=== PATIENT | male | born 1955 | race Caucasian/White ===

== ENCOUNTER 2017-10-13 10:25 | Inpatient (IN) | payer OTHER ==
[2017-10-13] VITALS (11 sets, daily range): BP systolic 94–143; BP diastolic 42–84
[~2017-10-13] VITALS: Ht 177.8 cm; Wt 104.8 kg
[~2017-10-13 10:25] MED LIST: ADULT LOW DOSE81 MG PO; ASPIR 8181 M1 PO; AUGMENTIN 875875 MG PO; CENTRUM SILVER1 EAC2 PO; CENTRUM SILVER1 EAC4 PO; CLARITIN10 MG PO; COLACE100 MG PO; ENOXAPARIN30 MG/0.1 SUBQ; FENTANYL PA50 MCG/HR TRANSDERM; FLONASE 0.05%50 MCG NASAL; HUMALOG100 UNIT/1 SUBQ; HYDROCODONE-AP1 EAC6 PO; IBUPROFEN 200200 M1 PO; LANTUS SUBQ; LIDOCAINE 22 %/30 GM MM; LISINOPRIL10 MG PO; LOPRESSOR25 PO; MINOCYCLINE HC100 M2 PO; NEURONTIN 300300 M1 PO; NEURONTIN600 MG PO; OXYCODONE HCL 55 MG PO; UNASYN 3 GM VIAL3 G1 IV; VITAMIN C500 M1 PO; VITAMIN E400 UNIT PO; VITAMINC500 PO
[2017-10-13] MEDS ORDERED: TYLENOL325 MG PO (10:42)
[2017-10-13 11:06] LABS: ANION GAP 18 mmol/L (7-16); BUN 68 mg/dL (7-18); CALCIUM 9.1 mg/dL (8.5-10.1); CHLORIDE 96 mmol/L (98-107); CO2 18 mmol/L (21-32); CREATININE 2.4 mg/dL (0.6-1.3); GLUCOSE 167 mg/dL (70-99); SODIUM 132 mmol/L (136-145)
[2017-10-13 11:07] LABS: APTT 29.3 Seconds (25.0-31.3); HEMATOCRIT 33.4 % (42.0-52.0); HEMOGLOBIN 10.8 gm/dL (14.0-18.0); INR 2.1; MCHC 32.4 g/dL (28.0-37.0); MCV 86.2 fL (80.0-100.0); MPV 6.8 fl. (7.2-11.1); NUCLEATED RBCS 0 /100WBC; PLATELET COUNT* 182 thou/uL (150-400); PROTIME 20.1 Seconds (9.20-11.50); RBC 3.87 mil/uL (4.50-6.00); RDW-CV 27.9 % (10.5-14.5); WBC 16.8 thou/uL (4.0-11.0)
[2017-10-13 11:13] LABS: ALBUMIN 2.1 g/dL (3.4-5.0); ALKALINE PHOSPHATASE 463 U/L (46-116); LIPASE 108 U/L (73-393); SGOT 310 U/L (15-37); SGPT 75 U/L (30-65); TOTAL PROTEIN 7.2 g/dL (6.4-8.2); TROPONIN-I LEVEL <0.06 ng/mL (<0.06)
[2017-10-13 11:15] LABS: TOTAL BILIRUBIN 12.2 mg/dL (<0.1-1.0)
[2017-10-13 11:27] LABS: ABSOLUTE LYMPHOCYTES 0.2 thou/uL (0.8-5.3); ABSOLUTE NEUTROPHILS 15.6 thou/uL (1.6-8.1); ANISOCYTOSIS 2+; HYPOCHROMASIA 1+; PLATELET ESTIMATE ADEQUATE; TARGET CELLS 1+
[2017-10-13 16:11] LABS: HEMATOCRIT 30.2 % (42.0-52.0); HEMOGLOBIN 9.9 gm/dL (14.0-18.0)
--- NOTE | 2017-10-13 16:36 | EKG ---
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: [place] : 1955 Requested By: Carmen Lay Order Number: [id number] MD: Iván Reid Measurements Intervals [place] Rate: 102 P: 56 VA: 193 QRS: -58 QRSD: 145 T: 51 QT: 360 QTc: 469 Interpretive Statements Sinus tachycardia RBBB and LAFB Compared to ECG 12/18/2014 23:54:34 Left anterior fascicular block now present Right bundle-branch block now present Fusion complex(es) no longer present Electronically Signed On 10-13-2017 16:35:54 [employer] by Iván Reid [email or web address] <ELECTRONICALLY SIGNED> By: Iván Reid MD, FACC 10/13/17 1635 1051 1051 Iván Reid MD, FACC /EPI
[2017-10-13 16:40] LABS: CALCIUM 8.3 mg/dL (8.5-10.1); CREATININE 2.1 mg/dL (0.6-1.3); POTASSIUM 5.2 mmol/L (3.5-5.1)
[2017-10-13 19:12] LABS: HEMATOCRIT 23.8 % (42.0-52.0); HEMOGLOBIN 8.1 gm/dL (14.0-18.0)
[2017-10-13 23:10] LABS: HEMATOCRIT 22.9 % (42.0-52.0); HEMOGLOBIN 7.8 gm/dL (14.0-18.0)
[2017-10-13 23:15] LABS: INR 1.9; PROTIME 18.4 Seconds (9.20-11.50)
[2017-10-14] VITALS (12 sets, daily range): BP systolic 82–125; BP diastolic 35–71
[2017-10-14 02:08] LABS: IgA 316 mg/dL (61-437); IgG 1999 mg/dL (700-1600); IgM 94 mg/dL (20-172)
[2017-10-14 02:08] LABS: HEPATITIS B SURFACE AG Negative (Negative); IgA 340 mg/dL (61-437); IgG 2292 mg/dL (700-1600); IgM 101 mg/dL (20-172)
[2017-10-14 04:39] LABS: INR 2.2; PROTIME 21.3 Seconds (9.20-11.50)
[2017-10-14 04:41] LABS: ALBUMIN 2.5 g/dL (3.4-5.0); APTT 39.9 Seconds (25.0-31.3); CALCIUM 7.8 mg/dL (8.5-10.1); CREATININE 2.2 mg/dL (0.6-1.3); PHOSPHORUS* 5.6 mg/dL (2.5-4.9); POTASSIUM 5.4 mmol/L (3.5-5.1)
[2017-10-14 05:45] LABS: HEMATOCRIT 23.3 % (42.0-52.0); HEMOGLOBIN 7.9 gm/dL (14.0-18.0); MCH 29.1 pg (26.0-34.0); MCHC 33.8 g/dL (28.0-37.0); MCV 86.1 fL (80.0-100.0); MPV 6.2 fl. (7.2-11.1); RBC 2.71 mil/uL (4.50-6.00); RDW-CV 27.7 % (10.5-14.5); WBC 7.2 thou/uL (4.0-11.0)
--- NOTE | 2017-10-14 14:15 | 2DMMODE ---
[place] [address] 2 D/M-MODE ECHOCARDIOGRAM Name: TITISTEFANIEPAVELSERJIO Price JR Room: [address] IN [facility]#: [id number] Admission: 10/13/17 Attend Phys: Mariah Garcia Discharge: 10/14/17 Date of : 53 Date of Service: 10/14/17 1414 Report #: [id number] THIS REPORT FOR: //name// APPROVED REPORT Study performed: 10/14/2017 09:02:40 EXAM: Comprehensive 2D, Doppler, and color-flow Echocardiogram Patient Location: In-Patient Room #: 006 Status: routine BSA: 2.18 HR: 98 bpm BP: 116/62 mmHg Rhythm: NSR Other Information Study Quality: Good Indications Dyspnea 2D Dimensions LVEF(%): 79.29 (>50%) IVSd: 15.46 (7-11mm) LVOT Diam: 22.63 (18-24mm) LVDd: 42.60 mm PWd: 13.46 (7-11mm) Ascending Ao: 35.59 (22-36mm) LVDs: 22.34 (25-40mm) Aortic Root: 34.75 mm Khalil's LVEF: 79.29 % Volumes Left Atrial Volume (Systole) LA ESV Index: 28.50 mL/m2 Aortic Valve AoV Peak Marciano.: 1.82 m/s AO Peak Gr.: 13.18 mmHg LVOT Max P.48 mmHg AO Mean Gr.: 8.34 mmHg LVOT Mean P.20 mmHg LVOT Max V: 1.69 m/s AO V2 VTI: 29.70 cm LVOT Mean V: 1.17 m/s MINA (VTI): 4.25 cm2 LVOT V1 VTI: 31.39 cm Mitral Valve E/A Ratio: 0.81 [place] [address] 2 D/M-MODE ECHOCARDIOGRAM Name: PAVEL ROBERSON I JR Room: [address] IN [facility].#: [id number] Admission: 10/13/17 Attend Phys: Mariah Garcia Discharge: 10/14/17 Date of : 53 Date of Service: 10/14/17 1414 Report #: [id number] MV Decel. Time: 167.83 ms MV E Max Marciano.: 1.32 m/s MV PHT: 48.67 ms MVA (PHT): 4.52 cm2 TDI E/Lateral E': 11.00 E/Medial E': 16.50 Medial E' Marciano.: 0.08 m/s Lateral E' Marciano.: 0.12 m/s Pulmonary Valve PV Peak Marciano.: 1.54 m/s PV Peak Gr.: 9.52 mmHg Tricuspid Valve TR Peak Gr.: 26.48 mmHg RVSP: 31.00 mmHg Left Ventricle The left ventricle is normal size. There is normal LV segmental wall motion. Moderate concentric left ventricular hypertrophy. Left ventricular systolic function is normal. The left ventricular ejection fraction is within the normal range. LVEF is >70%. Grade I - abnormal relaxation pattern. Right Ventricle The right ventricle is normal size. The right ventricular systolic function is normal. Atria Left atrium is mildly dilated. The right atrium size is normal. Aortic Valve The aortic valve is normal in structure. No aortic regurgitation is present. There is no aortic valvular stenosis. Mitral Valve There is mitral annular calcification. There is no mitral valve regurgitation noted. No evidence of mitral valve stenosis. Tricuspid Valve The tricuspid valve is normal in structure. Trace tricuspid regurgitation. The RVSP is 30-35 mmHg. Pulmonic Valve The pulmonary valve is normal in structure. There is no [place]mon[place] [address] 2 D/M-MODE ECHOCARDIOGRAM Name: PAVEL ROBERSON I Room: [address] IN M.R.#: [id number] Admission: 10/13/17 Attend Phys: Mariah Garcia Discharge: 10/14/17 Date of : 53 Date of Service: 10/14/17 1414 Report #: [id number] Great Vessels The aortic root is normal in size. IVC is not visualized. Pericardium There is no pericardial effusion. Left pleural effusion. <Conclusion> Moderate concentric left ventricular hypertrophy. LVEF is >70%. Left atrium is mildly dilated. <ELECTRONICALLY SIGNED> By: Josue Brand MD, [facility] 10/14/17 1414 1414 1414 Josue Brand MD, FACC /INF
[2017-10-14 16:09] LABS: KAPPA FREE LIGHT CHAINS 96.7 mg/L (3.3-19.4)
[2017-10-17 13:08] LABS: ANA INTERPRETATION Positive (Negative)
[2017-10-17 15:10] LABS: GLOBULIN TOTAL 4.5 g/dL (2.2-3.9); M-SPIKE Note: g/dL (Not Observed)
--- NOTE | 2017-10-29 13:26 | CON ---
[address] [address] CONSULTATION Name: PAVEL ROBERSON JR Room: [address] IN M.R.#: [id number] Admission: 10/13/17 Attend Phys: Jared Brito Discharge: 10/14/17 Date of : 53 Report #: [id number] THIS REPORT FOR: //name// CC: Jennifer Garcia DATE OF SERVICE: 10/13/2017 CONSULTING PHYSICIAN: Dr. Garcia. REASON FOR CONSULTATION: Acute kidney injury. HISTORY OF PRESENT ILLNESS: A 62-year-old gentleman admitted with shortness of breath, weakness and increasing abdominal girth. He tells me his abdomen has progressively been becoming more distended since July. He has not seen a primary care physician for at least the last 2 years. He denies taking any medications other than Tylenol and once in a while some Aleve. Denies any nausea or vomiting. He was found to have an elevated creatinine on admission of 2.4 and elevated potassium in the 6 range, and elevated lactic acid level. He has been admitted and is to undergo paracentesis. He presently does not have any complaints. REVIEW OF SYSTEMS: Constitutional, psych, heme, eyes, ENT, respiratory, cardiac, GI, , endocrine, all negative except as documented above. PAST MEDICAL HISTORY: Peripheral vascular disease with history of left AKA, insulin-dependent diabetes, history of hypertension, history of necrotizing fasciitis and sepsis. SOCIAL HISTORY: No alcohol. FAMILY HISTORY: No immediate family members with kidney disease. PHYSICAL EXAMINATION: VITAL SIGNS: Blood pressure 140/84, pulse 97, respirations 19, temperature 36.0. GENERAL: No acute distress. EYES: Extraocular movements intact. EARS: Externally normal. CARDIOVASCULAR: Tachycardic. LUNGS: Clear to auscultation. ABDOMEN: Distended. MUSCULOSKELETAL: Nontender. PSYCHIATRIC: Awake, alert. LABORATORY DATA: White cell count 16.8, hemoglobin 10.8, platelets [place] [address] CONSULTATION Name: TITISTEFANIEPAVELSERJIO Price JR Room: [address]#: [id number] Admission: 10/13/17 Attend Phys: Jared Brito Discharge: 10/14/17 Date of : 53 Report #: [id number] 132, potassium 6, chloride 96, bicarbonate 18, BUN 68, creatinine 2.4, glucose 167, calcium 9.1. Liver functions elevated. CK was 277, albumin 2.1, lipase 108. ASSESSMENT: 1. Acute kidney injury with admission creatinine of 1.4, in 2014 creatinine was 0.8. CK was okay. CT kidney was okay. 2. Lactic acidosis. 3. Hyponatremia, likely secondary to total body volume overload. 4. Hyperkalemia. 5. Low bicarbonate, metabolic acidosis versus respiratory alkalosis. 6. Elevated liver functions with elevated total bilirubin of 12 and evidence of cirrhosis on CT scan, which would be a new diagnosis. 7. Hypoalbuminemia with an albumin of 2.1. 8. Peripheral vascular disease with history of left above-knee amputation. 9. History of hypertension. 10. Insulin-dependent diabetes. PLAN: 1. Check echocardiogram. 2. Check CVP. 3. Protein electrophoresis, hepatitis B, C, KAI have all been ordered. 4. He is to undergo diagnostic and therapeutic paracentesis today. 5. We will administer albumin, hold on any diuretics and not administer any IV fluids for the time being. 6. A 2 gram potassium dietary restriction. 7. Antibiotics ordered. 8. Hyperkalemia was medically treated. He did receive an amp of bicarbonate. Repeat labs will be ordered. 9. UA has been ordered. 10. We will check labs again in the a.m. including a CK and CVP will be measured as well. Central line is to be placed. The case was discussed with Dr. Garcia. Thank you for requesting my opinion in the care and management of this patient. <ELECTRONICALLY SIGNED> By: Lory Alves MD 10/29/17 1326 1636 [id number] Alves MD /nt
== END 2017-10-14 12:50 | disposition short-term general hospital (02) | DRG 871 ==
LOC: M.ERS 10:25 → M.TBA-ER 13:27 → M.ICU 13:27
PROVIDERS: Internal Medicine Nephrology; Nurse Practitioner Family; ADMIT Internal Medicine
PROC: 30243L1 Transfusion of Nonautologous Fresh Plasma into Central Vein, Percutaneous Approach (ICD-10-PCS; principal; 2017-10-13)
PROC: 30243K1 Transfusion of Nonautologous Frozen Plasma into Central Vein, Percutaneous Approach (ICD-10-PCS; principal; 2017-10-13)
PROC: 0W9G3ZX Drainage of Peritoneal Cavity, Percutaneous Approach, Diagnostic (ICD-10-PCS; principal; 2017-10-13)
PROC: B548ZZA Ultrasonography of Superior Vena Cava, Guidance (ICD-10-PCS; principal; 2017-10-13)
PROC: 02HV33Z Insertion of Infusion Device into Superior Vena Cava, Percutaneous Approach (ICD-10-PCS; principal; 2017-10-13)
PROC: B24BZZ4 Ultrasonography of Heart with Aorta, Transesophageal (ICD-10-PCS; 2017-10-14)
DX: A41.9 Sepsis, unspecified organism (principal); J96.01 Acute respiratory failure with hypoxia; J18.9 Pneumonia, unspecified organism; R18.8 Other ascites; N17.9 Acute kidney failure, unspecified; E87.1 Hypo-osmolality and hyponatremia; E87.4 Mixed disorder of acid-base balance; R65.20 Severe sepsis without septic shock; N18.9 Chronic kidney disease, unspecified; E11.22 Type 2 diabetes mellitus with diabetic chronic kidney disease; I12.9 Hypertensive chronic kidney disease with stage 1 through stage 4 chronic kidney disease, or unspecified chronic kidney disease; D64.9 Anemia, unspecified; E83.39 Other disorders of phosphorus metabolism; E11.51 Type 2 diabetes mellitus with diabetic peripheral angiopathy without gangrene; E87.5 Hyperkalemia; K74.60 Unspecified cirrhosis of liver; J43.9 Emphysema, unspecified; Z87.891 Personal history of nicotine dependence; Z79.4 Long term (current) use of insulin; Z79.82 Long term (current) use of aspirin; Z79.899 Other long term (current) drug therapy; Z89.612 Acquired absence of left leg above knee; Z80.0 Family history of malignant neoplasm of digestive organs; Z80.1 Family history of malignant neoplasm of trachea, bronchus and lung